=== PATIENT | male | born 1945 | race Caucasian/White ===

== ENCOUNTER 2017-10-25 03:22 | Emergency (ER) | payer MEDICARE ==
[2017-10-25] MEDS ORDERED: Albuterol/Ipratropium 3.0-0.5 MG/3 ML Neb Soln NEB ONE (03:28)
--- NOTE | 2017-10-25 03:29 | EDM.PDOC ---
ED HPI GENERAL MEDICAL PROBLEM - General Chief Complaint: Respiratory Problem Stated Complaint: SHORTNESS OF BREATH Time Seen by Provider: 10/25/17 03:29 Source of Information: Reports: Patient - History of Present Illness INITIAL COMMENTS - FREE TEXT/NARRATIVE: HISTORY AND PHYSICAL: History of present illness: [Patient has had cough for 2 weeks increasing in severity unable to sleep due to cough Remote smoking history but he has quit back in the 1980s and has not smoked since no fever nausea vomiting diarrhea constipation chest pain shortness breath headache dizziness palpitation about a urine symptoms ] Review of systems: As per history of present illness and below otherwise all systems reviewed and negative. Past medical history: As per history of present illness and as reviewed below otherwise noncontributory. Surgical history: As per history of present illness and as reviewed below otherwise noncontributory. Social history: No reported history of drug or alcohol abuse. Family history: As per history of present illness and as reviewed below otherwise noncontributory. Physical exam: HEENT: Atraumatic, normocephalic, pupils reactive, negative for conjunctival pallor or scleral icterus, mucous membranes moist, throat clear, neck supple, nontender, trachea midline. Lungs: Clear to auscultation, breath sounds equal bilaterally, chest nontender. Heart: S1S2, regular, negative for clicks, rubs, or JVD. Abdomen: Soft, nondistended, nontender. Negative for masses or hepatosplenomegaly. Negative for costovertebral tenderness. Pelvis: Stable nontender. Genitourinary: Deferred. Rectal: Deferred. Extremities: Atraumatic, negative for cords or calf pain. Neurovascular unremarkable. Neuro: Awake, alert, oriented. Cranial nerves II through XII unremarkable. Cerebellum unremarkable. Motor and sensory unremarkable throughout. Exam nonfocal. Diagnostics: [Chest 2 views Influenza A ] Therapeutics: [DuoNeb 1 g Rocephin IM Azithromycin 500 mg by mouth daily #6 no refill HFA Phenergan with codeine ] Impression: Acute bronchitis Slight infiltrate on chest x-ray Definitive disposition and diagnosis as appropriate pending reevaluation and review of above. - Related Data Allergies Allergy/AdvReac Type Severity Reaction Status Date / Time No Known Allergies Allergy Verified 10/25/17 03:36 Home Meds: Home Meds Aspirin [Ecotrin] 81 mg PO DAILY 10/25/17 [History] Doxazosin [Cardura] 4 mg PO DAILY 10/25/17 [History] Hydrochlorothiazide 25 mg PO DAILY 10/25/17 [History] Losartan Potassium [Cozaar] 100 mg PO DAILY 10/25/17 [History] Multivitamin [Multivitamins] 1 tab PO DAILY 10/25/17 [History] Potassium Gluconate 595 mg PO BID 10/25/17 [History] Triamterene/Hydrochlorothiazid [Triamterene-HCTZ 37.5-25 MG] 25 - 37.5 mg PO DAILY 10/25/17 [History] Vitamin E 0 mg PO DAILY 10/25/17 [History] amLODIPine Besylate [Amlodipine Besylate] 10 mg PO DAILY 10/25/17 [History] atorvaSTATin [Lipitor] 10 mg PO DAILY 10/25/17 [History] metFORMIN [Glucophage XR] 500 mg PO BID 10/25/17 [History] ED ROS GENERAL - Review of Systems Review Of Systems: ROS reveals no pertinent complaints other than HPI. ED EXAM, GENERAL - Physical Exam Exam: See Below Course - Vital Signs Last Recorded V/S: Last Vital Signs Temp 97.9 F 10/25/17 03:32 Pulse 54 L 10/25/17 03:32 Resp 20 10/25/17 03:32 BP 143/80 H 10/25/17 03:32 Pulse Ox 94 L 10/25/17 03:32 - Orders/Labs/Meds Orders: Active Orders 24 hr Category Date Time Status RT Aerosol Therapy [RC] ASDIRECTED Care 10/25/17 03:28 Active Chest 2V [CR] Stat Exams 10/25/17 03:28 Ordered cefTRIAXone [Rocephin] 1,000 mg Med 10/25/17 04:39 Ordered Lidocaine 1% [Xylocaine-MPF 1%] 4 ml IM ONETIME Meds: Medications Discontinued Medications Generic Name Dose Route Start Last Admin Trade Name Freq PRN Reason Stop Dose Admin Albuterol/Ipratropium 3 ml 10/25/17 03:28 10/25/17 03:36 Duoneb 3.0-0.5 Mg/3 Ml NEB 10/25/17 03:29 3 ml ONETIME ONE Administration Departure - Departure Time of Disposition: 04:41 Disposition: Home, Self-Care 01 Condition: Good Clinical Impression: Acute bronchitis, Pulmonary infiltrate on chest x-ray - Discharge Information Forms: ED Department Discharge Additional Instructions: The following information is given to patients seen in the emergency department who are being discharged to home. This information is to outline your options for follow-up care. We provide all patients seen in our emergency department with a follow-up referral. The need for follow-up, as well as the timing and circumstances, are variable depending upon the specifics of your emergency department visit. If you don't have a primary care physician on staff, we will provide you with a referral. We always advise you to contact your personal physician following an emergency department visit to inform them of the circumstance of the visit and for follow-up with them and/or the need for any referrals to a consulting specialist. The emergency department will also refer you to a specialist when appropriate. This referral assures that you have the opportunity for follow-up care with a specialist. All of these measure are taken in an effort to provide you with optimal care, which includes your follow-up. Under all circumstances we always encourage you to contact your private physician who remains a resource for coordinating your care. When calling for follow-up care, please make the office aware that this follow-up is from your recent emergency room visit. If for any reason you are refused follow-up, please contact the [facility] emergency department at and asked to speak to the emergency department charge nurse. - My Orders Last 24 Hours: My Active Orders 10/25/17 03:28 RT Aerosol Therapy [RC] ASDIRECTED Chest 2V [CR] Stat 10/25/17 04:39 cefTRIAXone [Rocephin] 1,000 mg Lidocaine 1% [Xylocaine-MPF 1%] 4 ml IM ONETIME - Assessment/Plan Last 24 Hours: My Active Orders 10/25/17 03:28 RT Aerosol Therapy [RC] ASDIRECTED Chest 2V [CR] Stat 10/25/17 04:39 cefTRIAXone [Rocephin] 1,000 mg Lidocaine 1% [Xylocaine-MPF 1%] 4 ml IM ONETIME
[2017-10-25] MEDS ORDERED: cefTRIAXone 1,000 MG in Lidocaine 1% 4 ML IM ONE (04:39)
--- NOTE | 2017-10-25 19:44 | CR ---
EXAM DATE: 10/25/17 PATIENT'S AGE: 72 Patient: DOM PENN Facility: [place], [place] Site . Site : [id number] Study: XRay Chest [id number]/22/2018 3:59:54 AM Ordering Physician: Doctor Heaton Final Report: INDICATION: SOB, CP TECHNIQUE: Chest 2 views COMPARISON: None FINDINGS: Cardiovascular and mediastinum: Heart size and vasculature are normal in caliber and appearance. Mediastinum is within normal limits. Lungs and pleural spaces: Scarring along the left lung base. Hyperinflation. No sign of pleural effusion. No pneumothorax. Bones and soft tissues: Right shoulder arthroplasty. Degenerative changes IMPRESSION: Scarring along the left lung base. Early superimposed infectious etiology cannot be entirely excluded. Dictated by Christiano Rush MD @ 10/25/2017 4:29:23 AM Dictated by: Christiano Rush MD @ 10/25/2017 04:29:33 (Electronic Signature) Report Signed by Proxy. ADILIA
== END 2017-10-25 05:13 | disposition home or self-care (01) ==
LOC: MW.ED 03:22
DX: J20.9 Acute bronchitis, unspecified (principal); R91.8 Other nonspecific abnormal finding of lung field; Z79.82 Long term (current) use of aspirin; Z79.899 Other long term (current) drug therapy; Z79.84 Long term (current) use of oral hypoglycemic drugs
CPT/HCPCS: 71046; 87081; 87804; 87880; 94640; 96372; 99283; J0696